=== PATIENT | male | born 1965 | race Caucasian/White ===

== ENCOUNTER 2019-09-26 06:37 | Day surgery (SDC) | payer OTHER ==
[2019-09-26] MEDS ORDERED: Propofol 200 MG/20 ML SDV IV ONE (06:38)
[2019-09-26] MEDS ORDERED: Midazolam 1 MG/ML 2 ML SDV IV ONE (06:38)
[2019-09-26] MEDS ORDERED: Sodium Chloride 0.9% 10 ML Syringe FLUSH PRN (06:45)
[2019-09-26] MEDS ORDERED: Lactated Ringers 1,000 ML IV SCH (06:45)
--- NOTE | 2019-09-26 09:16 | PCM.OPNOTE ---
- General Post-Op/Procedure Note Date of Surgery/Procedure: 09/26/19 Operative Procedure(s): c scope Findings: normal exam Pre Op Diagnosis: + colo guard Post-Op Diagnosis: nl exam Anesthesia Technique: MAC Primary Surgeon: Jethro Lewis Anesthesia Provider: Ana Mazariegos Pathology: none Complications: None Condition: Good Free Text/Narrative:: see exam
--- NOTE | 2019-09-26 09:29 | OR ---
DATE OF OPERATION: 09/26/2019 SURGEON: Jethro Lewis MD PROCEDURE PERFORMED: Colonoscopy. PREOPERATIVE DIAGNOSIS: Positive Cologuard test. POSTOPERATIVE DIAGNOSIS: Normal colonoscopy. INDICATIONS FOR PROCEDURE: This is a 54-year-old white male, recently underwent a Cologuard test that came back as positive. He was offered and accepted colonoscopy. DESCRIPTION OF OPERATION: After an excellent IV sedation was administered, digital rectal exam was performed. No marked abnormality was noted. Flexible colonoscope was inserted and advanced to the cecum. Prep was excellent. Scope was slowly withdrawn and the colon was examined. The following findings were noted. Ascending colon, unremarkable. Transverse colon, unremarkable. Descending colon, unremarkable. Sigmoid and rectum, unremarkable. Colon was deflated. Scope was removed. RECOMMENDATIONS: Repeat colonoscopy in 10 years. /[id number] /MODL
== END 2019-09-26 10:09 | disposition home or self-care (01) ==
LOC: FB.SDS 06:37
PROVIDERS: ATTEND Surgery
DX: R19.5 Other fecal abnormalities (principal); Z79.82 Long term (current) use of aspirin
CPT/HCPCS: J2250; J2704; J7120